=== PATIENT | male | born 1990 | race Caucasian/White ===

== ENCOUNTER 2017-08-22 12:37 | Emergency (ER) | payer MEDICAID, OTHER ==
[~2017-08-22] VITALS: Ht 188 cm; Wt 95.5 kg
[2017-08-22 15:08] LABS: APPEARANCE,URINE CLOUDY (CLEAR); BILIRUBIN,URINE NEGATIVE (NEGATIVE); GLUCOSE, URINE (UA) NEGATIVE (NEGATIVE); KETONES,URINE NEGATIVE (NEGATIVE); LEUKOCYTE ESTERASE ,URINE LARGE (NEGATIVE); NITRATE,URINE NEGATIVE (NEGATIVE); OCCULT BLOOD,URINE MODERATE (NEGATIVE); PH,URINE 7.5 (5.0-8.0); PROTEIN,URINE NEGATIVE (NEGATIVE)
[2017-08-22 15:09] VITALS: BP 140/88
[2017-08-22] MEDS ORDERED: CefTRIAXone SODIUM 1 GM/VIAL IM ONE (15:30)
[2017-08-22] MEDS ORDERED: LIDOCAINE HCL/PF 1% 2 ML VIAL IM ONE (15:30)
[2017-08-22] MEDS ORDERED: AZITHROMYCIN 250 MG TABLET PO ONE (15:30)
[2017-08-22 15:45] LABS: BACTERIA,URINE Few /HPF (None Seen); WBC,URINE >100 /HPF (0-5)
== END 2017-08-22 15:44 | disposition home or self-care (01) ==
LOC: EMS 12:43
DX: A64 Unspecified sexually transmitted disease (principal); Z88.1 Allergy status to other antibiotic agents
CPT/HCPCS: 81001; 87086; 96372; 99284; J0696; J3490